=== PATIENT | female | born 1955 | race Caucasian/White ===

== ENCOUNTER → 2019-11-10 | Outpatient (CLI) | payer BC ==
--- NOTE | 2019-11-10 14:35 | XR ---
EXAMINATION TYPE: XR ankle complete LT DATE OF EXAM: 11/10/2019 CLINICAL HISTORY: Pain in left ankle joint. Pain and swelling 1 week after twisting. Bruising and tahir thema bilaterally. TECHNIQUE: Frontal, lateral and oblique images of the left ankle are obtained. COMPARISON: None. FINDINGS: There is no acute fracture/dislocation evident in the left ankle. The ankle mortise appea rs within normal limits. There is soft tissue swelling about the medial and lateral malleoli. Plantar spur. IMPRESSION: Soft tissue swelling about the ankle, with no acute osseous abnormality.
== END | disposition home or self-care (01) ==
LOC: RADXRMAIN 11:43
PROVIDERS: ATTEND Family Medicine
DX: R22.42 Localized swelling, mass and lump, left lower limb (principal)